=== PATIENT | male | born 1990 | race Caucasian/White ===

== ENCOUNTER 2018-07-22 02:58 | Emergency (ER) | payer OTHER ==
[~2018-07-22] VITALS: Ht 185.4 cm; Wt 83.0 kg
[~2018-07-22 02:58] MED LIST: ERYTHROMYCIN E3.5 G3 OPHTHALMIC; NORCO 5-325 TA1 EACH PO
[2018-07-22] MEDS ORDERED: PROAIR HFA8.5 GM INH (03:08)
[2018-07-22 03:40] LABS: INFLUENZA B ANTIGEN None Detected (None Detect)
[2018-07-22] MEDS ORDERED: OSELB75 PO (03:55)
[2018-07-22 04:03] VITALS: BP 120/68
== END 2018-07-22 04:03 | disposition home or self-care (01) ==
LOC: M.ERS 02:58
PROVIDERS: Emergency Medicine
DX: J10.1 Influenza due to other identified influenza virus with other respiratory manifestations (principal); J45.909 Unspecified asthma, uncomplicated